=== PATIENT | female | born 2005 | race Caucasian/White ===

== ENCOUNTER 2024-01-29 08:44 | Emergency (ER) | payer OTHER ==
[~2024-01-29] VITALS: Ht 154.9 cm; Wt 45.4 kg
[2024-01-29 08:44] VITALS: BP_SYST 105; PULSE 66; RESP 18; TEMP 97.7; O2SAT 97
[2024-01-29 09:14] LABS: BASOPHILS # (AUTO) 0.1 K/uL (0.0-0.2); BASOPHILS % (AUTO) 0.8 % (0.0-2.0); EOSINOPHILS # (AUTO) 0.1 K/uL (0.0-0.4); EOSINOPHILS % (AUTO) 0.8 % (0.0-4.0); HEMATOCRIT 37.2 % (36-48); HEMOGLOBIN 11.9 g/dL (12.0-16.0); LYMPHOCYTES # (AUTO) 1.9 K/uL (1.0-5.5); MEAN CORPUSCULAR HEMOGLOBIN 27 pg (27-31); MEAN CORPUSCULAR HGB CONC 32 % (32-36); MEAN CORPUSCULAR VOLUME 85 fL (79.0-98.0); MONOCYTES # (AUTO) 0.3 K/uL (0.0-1.0); MONOCYTES % (AUTO) 3.8 % (1.7-9.3); NEUTROPHILS # (AUTO) 5.1 K/uL (1.8-7.7); NEUTROPHILS % (AUTO) 68.6 % (40.0-70.0); PLATELET COUNT (AUTO) 191 K/uL (130-430); WHITE BLOOD COUNT (AUTO) 7.4 K/uL (4.5-11.0)
[2024-01-29 09:31] LABS: INR 1.2 (0.8-1.2); PROTHROMBIN TIME 12.1 SECS (9.5-12.5)
[2024-01-29] MEDS: NACL 0.9% 3,000 ML IV ONE (09:43)
[2024-01-29 09:48] LABS: ANION GAP 13 (5-15); CALCIUM 7.7 mg/dL (8.4-11.0); CARBON DIOXIDE 24 mmol/L (23-29); CHLORIDE 107 mmol/L (98-107); GLUCOSE 103 mg/dL (74-106); POTASSIUM 2.7 mmol/L (3.5-5.1); SODIUM SERUM 144 mmol/L (136-145); UREA NITROGEN, BLOOD 5 mg/dL (8-21)
[2024-01-29 09:49] LABS: BILIRUBIN,DIRECT 0.1 mg/dL (0.0-0.3); CREATININE 0.65 mg/dL (0.55-1.30); GFR AFRICAN AMERICAN 151 mL/min (>90); GFR NON AFRICAN-AMERICAN 125 mL/min (>90)
[2024-01-29 09:50] LABS: ALANINE AMINOTRANSFERASE 15 U/L (12-78); AMYLASE 77 U/L (0-100); ASPARTATE AMINOTRANSFERASE 15 U/L (10-37); LIPASE 22 U/L (16-77)
[2024-01-29 09:51] LABS: ALCOHOL, BLOOD 283 mg/dL (<10)
[2024-01-29 10:02] LABS: TOTAL BILIRUBIN 0.4 mg/dL (0.0-1.0); TOTAL PROTEIN, SERUM 6.8 g/dL (6.4-8.3)
[2024-01-29 10:04] LABS: ACETONE, SERUM NEGATIVE (NEGATIVE)
[2024-01-29 10:42] VITALS: BP_SYST 105; PULSE 66; RESP 18; TEMP 97.7; O2SAT 97
== END 2024-01-29 10:43 | disposition home or self-care (01) ==
LOC: EDBD → SED 08:44
DX: F10.129 Alcohol abuse with intoxication, unspecified (principal); R40.4 Transient alteration of awareness; R11.10 Vomiting, unspecified; Y90.8 Blood alcohol level of 240 mg/100 ml or more
CPT/HCPCS: 99284; 96360; 70450; 80076; 80048; 82009; 82150; 83690; 85025; 85610; 85730; 36415; 81025; 83605; G0482; J7030

== ENCOUNTER 2024-01-29 12:35 | Emergency (ER) | payer OTHER ==
[~2024-01-29] VITALS: Ht 154.9 cm; Wt 45.4 kg
[2024-01-29 12:35] VITALS: BP_SYST 91; PULSE 88; RESP 18; TEMP 98.1; O2SAT 98
[2024-01-29] MEDS: POTASSIUM CHLORIDE 20 MEQ/PKT PACKET PO ONE ×2 (13:46)
[2024-01-29] MEDS: ONDANSETRON HCL 4 MG/2 ML VIAL IVP ONE (14:20)
[2024-01-29 14:50] VITALS: BP_SYST 142; PULSE 80; RESP 20; TEMP 97.8; O2SAT 97
== END 2024-01-29 14:45 | disposition home or self-care (01) ==
LOC: SED 12:35 → EDBD 12:35 → SED 14:45
DX: F10.129 Alcohol abuse with intoxication, unspecified (principal); R41.82 Altered mental status, unspecified; Y90.8 Blood alcohol level of 240 mg/100 ml or more
CPT/HCPCS: 99283; 96374; J2405